=== PATIENT | male | born 1950 | race Asian ===

== ENCOUNTER → 2021-02-05 08:41 | Outpatient (CLI) | payer MEDICARE, SELFPAY ==
[2021-02-05] MEDS: COVID-19 VACC #1, MRNA(MOD) 100 MCG/0.5 ML VIAL IM (08:49)
== END ==
PROVIDERS: Visit Provider Internal Medicine
DX: Z23 Encounter for immunization (principal)
CPT/HCPCS: 0011A; 91301

== ENCOUNTER → 2021-03-05 09:08 | Outpatient (CLI) | payer MEDICARE, SELFPAY ==
[2021-03-05] MEDS: COVID-19 VACC #2, MRNA(MOD) 100 MCG/0.5 ML VIAL IM (09:17)
== END ==
PROVIDERS: Visit Provider Internal Medicine
DX: Z23 Encounter for immunization (principal)
CPT/HCPCS: 0012A; 91301

== ENCOUNTER → 2022-07-22 12:27 | Outpatient (CLI) | payer MEDICARE, MEDICAID, SELFPAY ==
--- NOTE | 2022-07-22 12:29 | DI.RAD.S_ITS ---
PROCEDURE: XR LUMBAR SPINE 2-3V INDICATIONS: right sided back pain; h/o herniated disc and FIDEL TECHNIQUE: 3 views of the lumbar spine were acquired. COMPARISON: None. FINDINGS: Bones: 5 [id number] vertebrae are present. There is normal bony alignment. No acute vertebral body compression fractures. No suspicious bony lesions. Moderate multilevel lumbar spondylosis with degenerative endplate changes and endplate osteophyte formation. Mild mid and lower lumbar facet arthropathy. Prominent endplate osteophytes. Soft tissues: Overlying bowel gas pattern is normal. No suspicious soft tissue calcifications. IMPRESSION: Lumbar spine without acute osseous abnormalities. Moderate multilevel lumbar spondylosis. Dictated by: Elfego Fields M.D. on 07/22/2022 at 14:14 Approved by: Elfego Fields M.D. on 07/22/2022 at 14:16
== END ==
PROVIDERS: PCP Pediatrics; Referring Provider Pediatrics; Visit Provider Pediatrics
DX: G89.29 Other chronic pain (principal); M54.9 Dorsalgia, unspecified; M47.816 Spondylosis without myelopathy or radiculopathy, lumbar region
CPT/HCPCS: 72100

== ENCOUNTER → 2022-09-07 10:20 | Outpatient (CLI) | payer MEDICARE, MEDICAID, SELFPAY ==
[2022-09-07 11:19] LABS: Add Manual Diff / Slide Review NO; Basophils Absolute Auto 0 /uL (0-100); Basophils Percent Auto 0.5 % (0-2); Eosinophils Absolute Auto 100 /uL (0-450); Eosinophils Percent Auto 2.5 % (2-4); Hematocrit 28.2 % (41-53); Hemoglobin 8.7 g/dL (13.5-17.5); Lymphocytes Absolute Auto 1000 /uL (1100-4500); Lymphocytes Percent Auto 26.5 % (25-40); Mean Corpuscular HGB Conc 30.9 % (30-36); Mean Corpuscular Hemoglobin 21.1 PG (26-34); Mean Corpuscular Volume 68.3 fL (80-100); Monocytes Absolute Auto 300 /uL (0-900); Monocytes Percent Auto 7.6 % (3-14); Neutrophils Absolute Auto 2400 /uL (1500-7000); Neutrophils Percent Auto 62.9 % (50-75); Platelet Count 272 X10^3/uL (150-400); Red Blood Cell Count 4.13 X10^6/uL (4.5-5.9); Red Cell Distribution Width 17.8 % (11.6-14.8); White Blood Cell Count 3.8 X10^3/uL (4.5-11.0)
[2022-09-07 11:57] LABS: Alanine Aminotransferase 20 IU/L (<50); Albumin 4.1 g/dL (3.5-5.0); Albumin Globulin Ratio 1.2 (1.0-2.8); Alkaline Phosphatase 85 U/L (38-126); Aspartate Aminotransferase 27 IU/L (17-59); BUN Creatinine Ratio 15.8 (6-22); Bilirubin Total 0.4 mg/dL (0.2-1.3); Blood Urea Nitrogen 16 mg/dL (9-20); Calcium 8.6 mg/dL (8.4-10.2); Carbon Dioxide 26 mmol/L (22-32); Chloride 106 mmol/L (98-107); Cholesterol 177 mg/dL (140-199); Estimated Glomerular Filt Rate > 60 mL/min (>60); Globulin 3.3 g/dL (1.7-4.1); Glucose 85 mg/dL (80-110); HDL Cholesterol 36 mg/dL (40-60); HEMOLYSIS < 15 (0-50); LDL Cholesterol Calculated 116 mg/dL (<100); Potassium 4.3 mmol/L (3.4-5.1); Sodium 141 mmol/L (137-145); Total Protein 7.4 g/dL (6.3-8.2); Triglycerides 126 mg/dL (35-150)
[2022-09-07 12:03] LABS: Microcytosis 2+
[2022-09-07 12:05] LABS: Hypochromasia 2+
[2022-09-07 12:06] LABS: Anisocytosis 2+
== END ==
PROVIDERS: PCP Family Medicine; Referring Provider Family Medicine; Visit Provider Family Medicine
DX: E78.5 Hyperlipidemia, unspecified (principal); Z12.5 Encounter for screening for malignant neoplasm of prostate; R73.9 Hyperglycemia, unspecified
CPT/HCPCS: 36415; 80053; 80061; 85025; G0103

== ENCOUNTER → 2022-10-07 10:38 | Outpatient (CLI) | payer MEDICARE, MEDICAID, SELFPAY ==
--- NOTE | 2022-10-07 10:39 | DI.US.S_ITS ---
PROCEDURE: US ABDOMEN LIMITED INDICATIONS: DISCOMFORT - HISTORY OF BILATERAL HERNIA REPAIR PER PATIENT TECHNIQUE: Real-time focused scanning was performed of the abdomen, with image documentation. COMPARISON: [facility], [place], ABD/PELVIS W/CON (PNL), 02/26/2013, 14:26. FINDINGS: Within the medial right groin, there is a fat containing hernia which appears compressible. There a neck measures approximately 2 x 2.2 cm. No findings of left groin hernia can be seen. IMPRESSION: Medial right groin hernia seen, which contains fat. Dictated by: Rodrigue Bonilla M.D. on 10/07/2022 at 11:43 Approved by: Rodrigue Bonilla M.D. on 10/07/2022 at 11:45
== END ==
PROVIDERS: PCP Family Medicine; Referring Provider Family Medicine; Visit Provider Family Medicine
DX: K40.91 Unilateral inguinal hernia, without obstruction or gangrene, recurrent (principal)
CPT/HCPCS: 76705

== ENCOUNTER → 2022-10-11 10:14 | Outpatient (CLI) | payer MEDICARE, MEDICAID, SELFPAY ==
[2022-10-11 12:31] LABS: COVID19 -Nasal RAPID Negative (Negative)
== END ==
PROVIDERS: PCP Family Medicine; Visit Provider Surgery
DX: Z01.812 Encounter for preprocedural laboratory examination (principal); Z20.822 Contact with and (suspected) exposure to COVID-19
CPT/HCPCS: 87635; C9803

== ENCOUNTER 2022-10-12 12:52 | Day surgery (SDC) | payer MEDICARE, MEDICAID, SELFPAY ==
[2022-10-12] VITALS (7 sets, daily range): BP systolic 97–140; BP diastolic 57–87; PULSE 66–87; RESP 12–21; TEMP 36.3–36.6; O2SAT 98–100; BMI 26.2
--- NOTE | 2022-10-12 13:21 | P.HP_ITS ---
History of Present Illness History of Present Illness Chief complaint: Colonoscopy Narrative: Personal history of colon cancer 12-15 years ago at [facility] Patient History Medical History (Updated 09/07/22 @ 19:29 by Paulina Awad DO) Constipation Low back pain Family & Social History Tobacco & Substance use: Smoking Status Former smoker alcohol intake current Meds Home Medications and Allergies Home Medications Medication Instructions Recorded Confirmed Type docusate sodium 100 mg capsule 100 mg PO BID #30 caps 07/22/22 09/07/22 Rx (Colace) Allergies Allergy/AdvReac Type Severity Reaction Status Date / Time adhesive Allergy Mild skin Verified 09/07/22 09:20 irritation Exam Narrative Exam Narrative: Oropharynx free of lesions Chest clear to auscultation percussion Cardiac exam reveals no S3 or murmur Assessment & Plan Assessment & Plan narrative: Reported personal history of colon cancer. Need for follow-up colonoscopy. Risks benefits and alternatives have been explained. Time Spent With Patient Critical Care time: I spent a total of [] minutes of critical care time on this patient's care today; this time is exclusive of procedural time.
--- NOTE | 2022-10-12 13:22 | PM.OP.COLON ---
Operative Date/Time/Diagnoses Date of procedure: 10/12/22 Pre-op diagnosis: See indication and findings Procedure & Clinicians Study performed: Colonoscopy Indications: Personal history of colon cancer Surgeon: Loren Joel Procedure Notes Procedure in detail: After informed consent was obtained the patient was placed in the left lateral decubitus position. The video colonoscope was introduced in the rectum slowly advanced to the cecum. Preparation was good. On slow withdrawal mucosa was carefully examined. The scope was removed. The patient tolerated procedure well. Blood loss none Complications none Sedation mac Findings 1. Anastomosis in the rectosigmoid at 15 cm from the anus, side to side 2. Otherwise negative colonoscopy to cecum Given his personal history of colon cancer he should have follow-up colonoscopy every 3 years.
[2022-10-12] MEDS: SODIUM CHLORIDE 0.9% 1,000 ML 84 ML IV (13:35)
== END 2022-10-12 14:49 | disposition home or self-care (01) ==
PROVIDERS: PCP Family Medicine; Referring Provider Internal Medicine Gastroenterology; Visit Provider Internal Medicine Gastroenterology
PROC: 0DJD8ZZ Inspection of Lower Intestinal Tract, Via Natural or Artificial Opening Endoscopic (ICD-10-PCS; CPT 45378; principal; 2022-10-12 14:00)
DX: Z12.11 Encounter for screening for malignant neoplasm of colon (principal); Z85.038 Personal history of other malignant neoplasm of large intestine
CPT/HCPCS: 45378; J2704

== ENCOUNTER → 2022-11-04 12:33 | Outpatient (CLI) | payer MEDICARE, MEDICAID, SELFPAY | PROVIDERS: PCP Family Medicine; Referring Provider Surgery; Visit Provider Surgery | DX: Z01.818 Encounter for other preprocedural examination (principal); K40.21 Bilateral inguinal hernia, without obstruction or gangrene, recurrent | CPT/HCPCS: 93005; 99213 ==

== ENCOUNTER → 2022-11-21 11:22 | Outpatient (CLI) | payer MEDICARE, MEDICAID, SELFPAY ==
[2022-11-21 13:04] LABS: COVID19 -Nasal RAPID Negative (Negative)
== END ==
PROVIDERS: PCP Family Medicine; Visit Provider Surgery
DX: Z01.812 Encounter for preprocedural laboratory examination (principal); Z20.822 Contact with and (suspected) exposure to COVID-19
CPT/HCPCS: 87635; C9803

== ENCOUNTER 2022-11-22 06:31 | Day surgery (SDC) | payer MEDICARE, MEDICAID, SELFPAY ==
[2022-11-16 12:45] VITALS: BMI 21.6
[2022-11-22] VITALS (7 sets, daily range): BP systolic 157–164; BP diastolic 80–93; PULSE 64–86; RESP 13–16; TEMP 36.2–36.7; O2SAT 96–100; BMI 21.6
[2022-11-22] MEDS: LACTATED RINGERS 1,000 ML 42 ML IV ×2 (07:25→09:44)
--- NOTE | 2022-11-22 07:53 | PM.PREOP ---
Pre-operative Note Interval Note History & Physical reviewed/Exam performed by Physician: Yes Changes to H&P: No
[2022-11-22] MEDS: CEFAZOLIN 2 GM/100 ML PREMIX 100 ML IV (08:10)
--- NOTE | 2022-11-22 08:20 | SUR.OPER ---
Supine on padded OR bed, head on pillow, arms padded and tucked at sides, legs uncrossed with pillow under knees, safety belt at thigh, tape over blanket over lower legs . Pt positioned per direction and supervision of Dr Hopkins.
[2022-11-22] MEDS: BUPIVACAINE 0.5% W/ EPI (PF) 30 ML VIAL INJ (08:31)
--- NOTE | 2022-11-22 11:44 | PM.OP.1 ---
Operative Date/Time/Diagnoses Date of procedure: 11/22/22 Pre-op diagnosis: Bilateral recurrent inguinal hernia Post-op diagnosis: same Procedure & Clinicians Procedure: Bilateral laparoscopic inguinal hernia repair Same procedure as scheduled: Yes Indications: Mr. Romero presented to my office with complaints of in particular a right inguinal hernia which was troublesome to him on exam he had bilateral inguinal hernia I discussed with him risks benefits and alternatives of laparoscopic bilateral repair and he wished to proceed. Surgeon: Louann Hopkins Click Yes if Unassisted: Yes Anesthesia Type: General Operative Notes Findings: Bilateral large direct hernia defect, the right was a sliding-type. There was scarring particularly near the indirect space from previous repairs. Specimen(s): none sent Procedure in detail: Patient was taken to the operating room and placed supine on the operating room table preoperative antibiotics were administered bilateral SCDs were in place. Oral endotracheal anesthesia was induced. A time-out was performed. The abdomen was prepped and draped in the usual sterile fashion. A Rodriguez catheter was placed. 0.5% bupivacaine with epinephrine was infused above the umbilicus and an incision was made. The incision was carried down through the subcutaneous tissues and the anterior abdominal wall fascia was grasped with 2 Aparna retractors and elevated. An 11 blade scalpel was used to enter into the abdominal space. Finger sweep confirmed location and a Ifeanyi trocar was placed. Two stay sutures were placed in the fascia before placing the trocar. The abdomen was then insufflated and the patient tolerated insufflation well. Two additional 5 mm accessory trocars were placed in the lateral positions. Attention was turned to the right inguinal hernia. There was bowel contained within the hernia sac. This bowel easily reduced with manual pressure from the exterior. The patient was positioned with his head down and tilted right side up and the peritoneal layer was incised above the hernia defect. The peritoneal layer was then peeled down hernia sac was reduced. The epigastric vessels and spermatic cord and vessels were identified and preserved. There was some scar tissue around the indirect space but the peritoneum came down bluntly. There was a very large hernia sac. After clearing out the Osmany space the indirect space and the direct place as well as a sufficient area laterally to accommodate a mesh a medium sized 3D max inguinal mesh was placed. It was adjusted to the correct position covering both direct and indirect spaces and the peritoneum was then closed over top of it using a running locking suture. The hernia sac was tacked up and used to cover a defect in the peritoneum. One laparoscopic 5 mm clip was placed on the end of the running suture to keep it in place. Attention was then turned to the left side. Again there was a smaller direct inguinal hernia defect. This still was decently large and reduction of the sac took some time. On this side there was more adhesions at the indirect space and a layer of peritoneum had to be left in order to dissect free the remainder of the peritoneum without getting near disrupting epigastric vessels. A hot scissors was used to incise the peritoneum overlying the space and this was carried down to dissect out the critical structures. The epigastric vessels spermatic vessels and spermatic cord were identified the femoral vessels were identified and Osmany's ligament was cleared. The 3D medium-sized mesh was placed over the left side in the usual position. Next a running locking suture was used to close the peritoneum. Again the hernia sac was tacked up and a single 5 mm clip was used at the end to keep the running suture in place. The needle was removed Next the abdomen was desufflated and the accessory trocars were removed under direct visualization. The Ifeanyi trocar was removed and the fascia was closed using the previously placed stay sutures. Skin was closed with running 4-0 Monocryl and covered with skin glue. After removing the drapes I removed the Rodriguez catheter and attempted to deflate a decent amount of air which had collected in the scrotum. Overall the patient tolerated the procedure well there were no complications the EBL was minimal and he went in good condition to the postoperative care unit Complications: none
[2022-11-22] MEDS: ONDANSETRON 4 MG/2 ML INJ IV (12:29)
--- NOTE | 2022-11-22 13:05 | SUR.PHASEII ---
1300 Pt voided 200ml using urinal amb with sba reports nausea improved after zofran
== END 2022-11-22 13:08 | disposition home or self-care (01) ==
PROVIDERS: PCP Family Medicine; Referring Provider Surgery; Visit Provider Surgery
PROC: 0YQ64ZZ Repair Left Inguinal Region, Percutaneous Endoscopic Approach (ICD-10-PCS; CPT 49651; principal; 2022-11-22 07:45)
DX: K40.21 Bilateral inguinal hernia, without obstruction or gangrene, recurrent (principal)
CPT/HCPCS: 49651; J0330; J0690; J1100; J1170; J2405; J2704; J3010

== ENCOUNTER → 2022-11-30 09:01 | Outpatient (CLI) | payer MEDICARE, MEDICAID, SELFPAY ==
[2022-11-30 09:35] LABS: BUN Creatinine Ratio 15.5 (6-22); Blood Urea Nitrogen 18 mg/dL (9-20); Estimated Glomerular Filt Rate > 60 mL/min (>60)
== END ==
PROVIDERS: PCP Family Medicine; Referring Provider Surgery; Visit Provider Surgery
DX: K40.91 Unilateral inguinal hernia, without obstruction or gangrene, recurrent (principal)
CPT/HCPCS: 36415; 82565; 84520

== ENCOUNTER → 2022-12-01 08:24 | Outpatient (CLI) | payer MEDICARE, MEDICAID, SELFPAY ==
--- NOTE | 2022-12-01 08:25 | DI.CT.S_ITS ---
PROCEDURE: CT ABDOMEN PELVIS W CON INDICATIONS: possible recurrent inguinal hernia TECHNIQUE: After the administration of oral and intravenous contrast, axial sections were acquired from the lung bases to the pubic symphysis. Coronal and sagittal reformats were performed. For radiation dose reduction, the following was used: automated exposure control, adjustment of mA and/or kV according to patient size. COMPARISON:None. FINDINGS: Image quality: Good Lower chest: Basal atelectasis. Solid organs: Subcentimeter lesions are too small to characterize. Liver is otherwise unremarkable. Cholelithiasis is present. Prominent biliary tree at the upper limit of normal for age. No pathologic dilation of the pancreatic duct. No splenomegaly. No adrenal nodules. Bosniak 1 and 2 renal lesions are present, for which no dedicated followup is necessary per 2019 proposed guidelines. No hydronephrosis. Vessels and lymph nodes: The main portal vein is patent. There is no abdominal aortic aneurysm. No pathologic adenopathy by size criteria. Bowel and peritoneum: Rectal suture lines. No bowel obstruction. Suspected postsurgical bowel anatomy. No pathologic ascites. Body wall: Anterior abdominal wall postsurgical changes. There is sub peritoneal edema anterior to the bladder, with fluid in both inguinal canals. Pelvis: Heterogeneous enhancement. Some wall thickening is seen of the bladder, nonspecific. Bones: Degenerative changes without acute or suspicious osseous finding. IMPRESSION: Edema and fluid anterior to the bladder bilaterally in the sub peritoneal space, with fluid in both inguinal canals which may be communicating, suspicious for hernias. Sterility of the fluid is indeterminate. Evaluation is limited on this non dynamic study. Please consider correlation with ultrasound and/or direct examination. Other findings as above. Dictated by: Sha Fonseca M.D. on 12/01/2022 at 11:09 Approved by: Sha Fonseca M.D. on 12/01/2022 at 11:18
== END ==
PROVIDERS: PCP Family Medicine; Referring Provider Surgery; Visit Provider Surgery
DX: K40.91 Unilateral inguinal hernia, without obstruction or gangrene, recurrent (principal); K80.20 Calculus of gallbladder without cholecystitis without obstruction; N28.9 Disorder of kidney and ureter, unspecified
CPT/HCPCS: 74177

== ENCOUNTER → 2024-08-05 08:54 | Outpatient (CLI) | payer MEDICARE, MEDICAID, SELFPAY ==
[2024-08-05 09:57] LABS: Add Manual Diff / Slide Review NO; Basophils Absolute Auto 0 /uL (0-100); Basophils Percent Auto 0.7 % (0-2); Eosinophils Absolute Auto 100 /uL (0-450); Hematocrit 28.2 % (41-53); Hemoglobin 8.6 g/dL (13.5-17.5); Lymphocytes Absolute Auto 1000 /uL (1100-4500); Mean Corpuscular HGB Conc 30.3 % (30-36); Mean Corpuscular Hemoglobin 19.9 PG (26-34); Mean Corpuscular Volume 65.8 fL (80-100); Monocytes Absolute Auto 300 /uL (0-900); Monocytes Percent Auto 8.3 % (3-14); Neutrophils Absolute Auto 1700 /uL (1500-7000); Platelet Count 285 X10^3/uL (150-400); Red Blood Cell Count 4.29 X10^6/uL (4.5-5.9); Red Cell Distribution Width 19.4 % (11.6-14.8); White Blood Cell Count 3.1 X10^3/uL (4.5-11.0)
[2024-08-05 10:34] LABS: Alanine Aminotransferase 19 IU/L (<50); Albumin 4.1 g/dL (3.5-5.0); Albumin Globulin Ratio 1.4 (1.0-2.8); Alkaline Phosphatase 92 U/L (38-126); Aspartate Aminotransferase 27 IU/L (17-59); BUN Creatinine Ratio 17.4 (6-22); Bilirubin Total 0.5 mg/dL (0.2-1.3); Blood Urea Nitrogen 21 mg/dL (9-20); Calcium 9.1 mg/dL (8.4-10.2); Carbon Dioxide 23 mmol/L (22-32); Chloride 106 mmol/L (98-107); Estimated Glomerular Filt Rate > 60 mL/min (>60); Glucose 90 mg/dL (80-110); HEMOLYSIS < 15 (0-50); Potassium 4.6 mmol/L (3.4-5.1); Sodium 138 mmol/L (137-145); Total Protein 7.1 g/dL (6.3-8.2)
[2024-08-05 12:25] LABS: Anisocytosis 1+; Microcytosis 1+
== END ==
LOC: LAB 08:54
PROVIDERS: PCP Family Medicine; Referring Provider Family Medicine; Visit Provider Family Medicine
DX: D64.9 Anemia, unspecified (principal); E78.5 Hyperlipidemia, unspecified
CPT/HCPCS: 36415; 80053; 85025

== ENCOUNTER → 2024-08-06 15:54 | Outpatient (CLI) | payer MEDICARE, MEDICAID, SELFPAY ==
[2024-08-06 18:55] LABS: HEMOLYSIS < 15 (0-50); Iron 21 ug/dL (49-181)
[2024-08-06 19:07] LABS: Percent Iron Saturation 5 % (20-50); Total Iron Binding Capacity 450 ug/dL (261-462)
[2024-08-06 19:11] LABS: Transferrin 357 mg/dL (206-381)
[2024-08-07 19:22] LABS: Prostate Specific Antigen Scrn 2.24 ng/mL (0.1-4.0)
== END ==
PROVIDERS: PCP Family Medicine; Referring Provider Physician Assistant; Visit Provider Physician Assistant
DX: Z12.5 Encounter for screening for malignant neoplasm of prostate (principal); D64.9 Anemia, unspecified; Z85.038 Personal history of other malignant neoplasm of large intestine; Z83.2 Family history of diseases of the blood and blood-forming organs and certain disorders involving the immune mechanism
CPT/HCPCS: 36415; 83540; 83550; G0103

== ENCOUNTER → 2024-08-07 11:15 | Outpatient (CLI) | payer MEDICARE, MEDICAID, SELFPAY ==
[2024-08-08 10:10] LABS: Fecal Immunochemical Test Negative (Negative)
== END ==
PROVIDERS: PCP Family Medicine; Referring Provider Physician Assistant; Visit Provider Physician Assistant
DX: D64.9 Anemia, unspecified (principal); Z85.038 Personal history of other malignant neoplasm of large intestine
CPT/HCPCS: 82274

== ENCOUNTER → 2025-06-18 10:33 | Outpatient (CLI) | payer OTHER, MEDICAID, SELFPAY ==
[2025-06-18 11:03] LABS: Hematocrit 42.1 % (41-53); Hemoglobin 14.2 g/dL (13.5-17.5); Mean Corpuscular HGB Conc 33.6 % (30-36); Mean Corpuscular Hemoglobin 31.6 PG (26-34); Mean Corpuscular Volume 94.1 fL (80-100); Platelet Count 151 X10^3/uL (150-400)
[2025-06-18 11:23] LABS: Alanine Aminotransferase 28 IU/L (<50); Albumin 4.4 g/dL (3.5-5.0); Albumin Globulin Ratio 1.5 (1.0-2.8); Alkaline Phosphatase 85 U/L (38-126); Blood Urea Nitrogen 22 mg/dL (9-20); Calcium 9.2 mg/dL (8.4-10.2); Carbon Dioxide 24 mmol/L (22-32); Chloride 106 mmol/L (98-107); Estimated Glomerular Filt Rate > 60 mL/min (>60); Globulin 2.9 g/dL (1.7-4.1); Glucose 86 mg/dL (70-99); HEMOLYSIS < 15 (0-50); Potassium 4.1 mmol/L (3.4-5.1); Sodium 140 mmol/L (137-145); Total Protein 7.3 g/dL (6.3-8.2)
[2025-06-18 11:55] LABS: Ferritin 64 ng/mL (18-464)
== END ==
PROVIDERS: PCP Family Medicine; Referring Provider Family Medicine; Visit Provider Family Medicine
DX: D64.9 Anemia, unspecified (principal)
CPT/HCPCS: 36415; 80053; 82728; 85027